=== PATIENT | female | born 1980 | race Two or more races ===

== ENCOUNTER → 2018-01-24 | Emergency (ER) | payer SELFPAY ==
[~2018-01-24] VITALS: Ht 154.9 cm; Wt 72.6 kg
[~2018-01-24] MED LIST: EPINEPHrine HCL 1 MG/1 ML AMP ONE; EPINEPHrine HCL 1 MG/1 ML AMP SC ONE; methylPREDNISolone SOD SUCC 125 MG/2 ML VL IV ONE; methylPREDNISolone SOD SUCC 125 MG/2 ML VL ONE
[2018-01-24 22:52] VITALS: BP 107/60
== END | disposition home or self-care (01) ==
LOC: ER 19:52
DX: L27.2 Dermatitis due to ingested food (principal); Z88.8 Allergy status to other drugs, medicaments and biological substances; Z90.89 Acquired absence of other organs
CPT/HCPCS: 70360; 96372; 96374; 99284; J0171; J2930